=== PATIENT | male | born 1980 | race Caucasian/White ===

== ENCOUNTER → 2025-05-15 15:18 | Outpatient (BNVA) | payer OTHER, SELFPAY | PROVIDERS: Visit Provider Registered Nurse | DX: S00.83XA Contusion of other part of head, initial encounter (principal); S46.812A Strain of other muscles, fascia and tendons at shoulder and upper arm level, left arm, initial encounter; Y04.2XXA Assault by strike against or bumped into by another person, initial encounter | CPT/HCPCS: 72040; 99204 ==

== ENCOUNTER → 2025-05-17 14:59 | Outpatient (BNVA) | payer OTHER, SELFPAY | PROVIDERS: Visit Provider Physician Assistant | DX: S16.1XXA Strain of muscle, fascia and tendon at neck level, initial encounter (principal); S00.83XA Contusion of other part of head, initial encounter; Y04.2XXA Assault by strike against or bumped into by another person, initial encounter | CPT/HCPCS: 99214 ==

== ENCOUNTER → 2025-05-28 14:11 | Outpatient (BNVA) | payer OTHER, SELFPAY | PROVIDERS: Visit Provider Physician Assistant Medical | DX: S16.1XXA Strain of muscle, fascia and tendon at neck level, initial encounter (principal); S46.812A Strain of other muscles, fascia and tendons at shoulder and upper arm level, left arm, initial encounter; Y04.2XXA Assault by strike against or bumped into by another person, initial encounter; Z02.79 Encounter for issue of other medical certificate | CPT/HCPCS: 99213 ==

== ENCOUNTER → 2025-06-25 12:56 | Outpatient (BNVA) | payer OTHER, SELFPAY | PROVIDERS: Visit Provider Physician Assistant Medical | DX: S00.83XD Contusion of other part of head, subsequent encounter (principal); S46.812D Strain of other muscles, fascia and tendons at shoulder and upper arm level, left arm, subsequent encounter; Y04.2XXD Assault by strike against or bumped into by another person, subsequent encounter | CPT/HCPCS: 99214 ==

== ENCOUNTER → 2025-06-26 11:56 | Outpatient (BNVA) | payer OTHER, SELFPAY | PROVIDERS: Visit Provider Emergency Medicine | DX: S16.1XXD Strain of muscle, fascia and tendon at neck level, subsequent encounter (principal); Y04.2XXD Assault by strike against or bumped into by another person, subsequent encounter | CPT/HCPCS: 99214 ==

== ENCOUNTER → 2025-07-02 09:38 | Outpatient (BNVA) | payer OTHER, SELFPAY | PROVIDERS: Visit Provider Emergency Medicine | DX: S16.1XXD Strain of muscle, fascia and tendon at neck level, subsequent encounter (principal); Y04.2XXD Assault by strike against or bumped into by another person, subsequent encounter | CPT/HCPCS: 99213 ==

== ENCOUNTER → 2025-07-16 08:53 | Outpatient (BNVA) | payer OTHER, SELFPAY | PROVIDERS: Visit Provider Physician Assistant Medical | DX: S16.1XXD Strain of muscle, fascia and tendon at neck level, subsequent encounter (principal); S00.83XD Contusion of other part of head, subsequent encounter; S46.812D Strain of other muscles, fascia and tendons at shoulder and upper arm level, left arm, subsequent encounter; Y04.2XXD Assault by strike against or bumped into by another person, subsequent encounter; M24.812 Other specific joint derangements of left shoulder, not elsewhere classified; M54.12 Radiculopathy, cervical region | CPT/HCPCS: 73030; 99214 ==

== ENCOUNTER → 2025-07-24 09:00 | Outpatient (BNVA) | payer OTHER, SELFPAY | PROVIDERS: Visit Provider Emergency Medicine | DX: M54.12 Radiculopathy, cervical region (principal) | CPT/HCPCS: 99213 ==

== ENCOUNTER 2025-08-04 09:14 | Outpatient (REF) | payer OTHER, SELFPAY ==
--- NOTE | ~2025-08-04 | MR_ITS ---
CLINICAL HISTORY: RADICULOPATHY MR cervical spine without gadolinium Comparison: CR/SR - XR CERVICAL SPINE 2-3 VIEWS - 05/15/25 16:05 EDT Findings: Vertebral alignment is within normal limits. Vertebral body height is maintained. No bone marrow edema. Multilevel disc desiccation and there is mild disc degeneration at C5-6. Cervical cord is normal in size, morphology and signal intensity. No cord impingement. C2-3, C3-4 and C4-5 levels are unremarkable. At C5-6 mild spondylotic disc bulge is demonstrated with no focal disc herniation. There is mild central canal stenosis. C6-7 and C7-T1 levels are unremarkable. IMPRESSION: 1. No acute findings. 2. Mild degenerative disc disease and mild disc bulge at C5-6. This document has been electronically signed by: Parris Bowser MD on 08/06/2025 17:11:01
== END 2025-08-04 09:15 | disposition home or self-care (01) ==
LOC: HO.MRI 09:14
PROVIDERS: Visit Provider Internal Medicine
DX: M54.12 Radiculopathy, cervical region (principal)
CPT/HCPCS: 72141

== ENCOUNTER → 2025-08-04 09:20 | Outpatient (BNV) | payer OTHER, SELFPAY | PROVIDERS: Visit Provider Specialist | DX: M50.122 Cervical disc disorder at C5-C6 level with radiculopathy (principal); M50.222 Other cervical disc displacement at C5-C6 level | CPT/HCPCS: 72141 ==

== ENCOUNTER → 2025-08-10 08:41 | Outpatient (BNVA) | payer OTHER, SELFPAY | PROVIDERS: Visit Provider Emergency Medicine | DX: S46.812D Strain of other muscles, fascia and tendons at shoulder and upper arm level, left arm, subsequent encounter (principal); Y04.2XXD Assault by strike against or bumped into by another person, subsequent encounter | CPT/HCPCS: 99214 ==

== ENCOUNTER → 2025-09-04 09:00 | Outpatient (BNVA) | payer OTHER, SELFPAY | PROVIDERS: Visit Provider Emergency Medicine | DX: S46.812D Strain of other muscles, fascia and tendons at shoulder and upper arm level, left arm, subsequent encounter (principal); Y04.2XXD Assault by strike against or bumped into by another person, subsequent encounter | CPT/HCPCS: 99213 ==

== ENCOUNTER 2025-09-18 18:34 | Outpatient (REF) | payer OTHER, SELFPAY ==
--- NOTE | ~2025-09-18 | MR_ITS ---
EXAMINATION: MR SHOULDER WITHOUT CONTRAST, LEFT CLINICAL INFORMATION: Persistent shoulder pain COMPARISON: X-ray 07/16/2025 TECHNIQUE: MRI of the shoulder without contrast was performed on a high-field scanner. FINDINGS: ROTATOR CUFF: Supraspinatus: Mild tendinosis Infraspinatus: Intact Teres minor: Intact Subscapularis: Mild tendinosis. No muscle atrophy or fatty infiltration. BICEPS: Intact CORACOACROMIAL ARCH: The undersurface of the acromion is mildly curved with no subacromial spur. Mild acromioclavicular arthritis. LABRUM/CAPSULE: No displaced labral tear is seen. Inferior capsule is intact GLENOHUMERAL JOINT/MARROW: No fracture. No no aggressive marrow replacing lesion. No significant effusion. Nonspecific axillary lymph nodes, measuring up to 0.9 cm (short axis). MR/MR shoulder LT wo con IMPRESSION: * Mild supraspinatus and subscapularis tendinosis. No measurable tear/retraction is seen. * Mild acromioclavicular arthritis * Nonspecific axillary lymph nodes, larger measuring 0.9 cm in short axis Electronically signed by: Rick Narayan MD 09/20/2025 08:33 AM EST
== END 2025-09-18 18:35 | disposition home or self-care (01) ==
LOC: HO.MRI 18:34
PROVIDERS: Visit Provider Emergency Medicine
DX: M25.512 Pain in left shoulder (principal)
CPT/HCPCS: 73221

== ENCOUNTER → 2025-09-18 18:44 | Outpatient (BNV) | payer OTHER, SELFPAY | PROVIDERS: Visit Provider Radiology Diagnostic Ultrasound | DX: M19.012 Primary osteoarthritis, left shoulder (principal); M75.32 Calcific tendinitis of left shoulder | CPT/HCPCS: 73221 ==

== ENCOUNTER 2025-09-21 09:59 | Outpatient (AMB) | payer OTHER, SELFPAY ==
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
[2025-09-21 10:18] VITALS: BP 168/100; PULSE 72; O2SAT 100; BMI 27.9
[2025-09-21 10:20] VITALS: BP 168/97
== END 2025-09-21 10:47 | disposition home or self-care (01) ==
LOC: HO.PMC 10:00
PROVIDERS: Visit Provider Nurse Practitioner Family
DX: M25.512 Pain in left shoulder (principal); Y99.0 Civilian activity done for income or pay; M19.012 Primary osteoarthritis, left shoulder; M47.812 Spondylosis without myelopathy or radiculopathy, cervical region; M75.82 Other shoulder lesions, left shoulder
CPT/HCPCS: 99204

== ENCOUNTER → 2025-09-21 09:59 | Outpatient (BNVA) | payer OTHER, SELFPAY | PROVIDERS: Visit Provider Nurse Practitioner Family | DX: M19.012 Primary osteoarthritis, left shoulder (principal); M47.812 Spondylosis without myelopathy or radiculopathy, cervical region; M75.82 Other shoulder lesions, left shoulder; Y04.2XXA Assault by strike against or bumped into by another person, initial encounter; Y92.89 Other specified places as the place of occurrence of the external cause; Y93.9 Activity, unspecified; Y99.0 Civilian activity done for income or pay | CPT/HCPCS: 99202 ==